=== PATIENT | male | born 1955 | race Two or more races ===

== ENCOUNTER 2021-10-19 13:51 | Emergency (ER) | payer OTHER ==
[~2021-10-19] VITALS: Ht 165.1 cm; Wt 81.6 kg
[2021-10-19 13:59] VITALS: BP 131/83
[2021-10-19] MEDS ORDERED: AMOX-430 PO (14:20)
[2021-10-19] MEDS ORDERED: TDAP [DIPH/PERTUSSIS/TET] 0.5 ML VIAL IM ONE ×2 (14:30→14:36)
--- NOTE | 2021-10-19 15:06 | NUR ---
Patient discharged to home in stable condition. Written and verbal after care instructions given. Patient verbalizes understanding of instruction.
== END 2021-10-19 15:18 | disposition home or self-care (01) ==
LOC: ER 13:51
DX: S01.311A Laceration without foreign body of right ear, initial encounter (principal); S50.811A Abrasion of right forearm, initial encounter; I10 Essential (primary) hypertension; W54.0XXA Bitten by dog, initial encounter; Y93.89 Activity, other specified; Y92.89 Other specified places as the place of occurrence of the external cause; Y99.8 Other external cause status
CPT/HCPCS: 90715

== ENCOUNTER 2025-07-21 17:56 | Emergency (ER) | payer OTHER, MEDICAID ==
[~2025-07-21] VITALS: Ht 165.1 cm; Wt 65.8 kg
[~2025-07-21 17:56] MED LIST: AMOX-430 PO
[2025-07-21] MEDS ORDERED: TDAP [DIPH/PERTUSSIS/TET] 0.5 ML VIAL IM ONE (18:26)
[2025-07-21] MEDS ORDERED: AMOX/CLAVULANATE 875 MG TABLET ONE (18:26)
[2025-07-21] MEDS: AMOX/CLAVULANATE 875 MG TABLET PO ONE (18:33)
[2025-07-21] MEDS: TDAP [DIPH/PERTUSSIS/TET] 0.5 ML VIAL IM ONE (18:35)
[2025-07-21] MEDS ORDERED: AMOX-430 PO (20:17)
[2025-07-21 20:29] VITALS: BP 114/79; TEMP 97.9; O2SAT 99
== END 2025-07-21 20:29 | disposition home or self-care (01) ==
LOC: ER 18:14
DX: S41.151A Open bite of right upper arm, initial encounter (principal); I10 Essential (primary) hypertension; W54.0XXA Bitten by dog, initial encounter; Y93.89 Activity, other specified; Y92.89 Other specified places as the place of occurrence of the external cause; Y99.8 Other external cause status
CPT/HCPCS: 73080-TC; 73090-TC; 73120-TC; 90715

== ENCOUNTER 2025-07-27 10:19 | Emergency (ER) | payer OTHER, MEDICAID ==
[~2025-07-27] VITALS: Ht 165.1 cm; Wt 70.3 kg
[2025-07-27 10:48] VITALS: BP 138/82; TEMP 97.9
== END 2025-07-27 11:52 | disposition home or self-care (01) ==
LOC: ER 10:21
DX: S51.831A Puncture wound without foreign body of right forearm, initial encounter (principal); I10 Essential (primary) hypertension; W54.0XXA Bitten by dog, initial encounter; Y93.89 Activity, other specified; Y92.89 Other specified places as the place of occurrence of the external cause; Y99.8 Other external cause status